=== PATIENT | female | born 1960 | race Hispanic/Latino ===

== ENCOUNTER → 2023-10-13 | Day surgery (SDC) | payer OTHER ==
--- NOTE | 2023-10-13 12:32 | RAD REPORT ---
EXAM DESCRIPTION: US - Biopsy Lymph Node - 10/13/2023 10:14 am CLINICAL HISTORY: R22.1, R59.9 COMPARISON: CT neck August 2023 FINDINGS: The risks, benefits and alternatives to the procedure were explained to the patient and in formed consent obtained Skin and deeper tissues anesthetized with lidocaine Under sonographic guidance 17 gauge needle placed into an enlarged left submandibular lymph node. 18 gauge needle then advanced through this. Four 2 centimeter core specimens obtained and given to pathology Patient experienced no immediate complication IMPRESSION: Core biopsies of an enlarged left submandibular lymph node
== END ==
LOC: FNA 08:51
DX: C85.11 Unspecified B-cell lymphoma, lymph nodes of head, face, and neck (principal)
CPT/HCPCS: 38505; 76942; 88305